=== PATIENT | male | born 1955 | race Caucasian/White ===

== ENCOUNTER 2021-11-15 17:48 | Emergency (ER) | payer SELFPAY ==
[~2021-11-15] VITALS: Ht 170.2 cm; Wt 80.7 kg
== END 2021-11-15 20:30 | disposition home or self-care (01) ==
LOC: ER 17:54
DX: S00.01XA Abrasion of scalp, initial encounter (principal); S30.0XXA Contusion of lower back and pelvis, initial encounter; W11.XXXA Fall on and from ladder, initial encounter; Y99.0 Civilian activity done for income or pay
CPT/HCPCS: 70450; 72125; 72220; 99283